=== PATIENT | male | born 1950 | race Caucasian/White ===

== ENCOUNTER 2017-04-19 07:21 | Day surgery (SDC) | payer OTHER ==
[~2017-04-19] VITALS: Ht 165.1 cm; Wt 80.7 kg
[2017-04-19] MEDS ORDERED: GLIM2TAB PO (09:06)
[2017-04-19] MEDS ORDERED: METF500T2 PO (09:06)
[2017-04-19] MEDS ORDERED: INSU100S22 SUBQ (09:06)
[2017-04-19] MEDS ORDERED: LIDOCAINE 2% 100 MG/5 ML UJET TP ONE (09:49)
[2017-04-19] MEDS ORDERED: fentaNYL 0.05 MG/ML VIAL ONE (09:57)
[2017-04-19] MEDS ORDERED: MIDAZOLAM 2 MG/2 ML VIAL ONE (09:57)
[2017-04-19] MEDS ORDERED: MIDAZOLAM 2 MG/2 ML VIAL IVP ONE (12:50)
[2017-04-19] MEDS ORDERED: fentaNYL 0.05 MG/ML VIAL IVP ONE (12:50)
== END 2017-04-19 11:38 | disposition home or self-care (01) ==
LOC: MDS 07:21 → MMU 07:21 → MDS 11:38
PROVIDERS: ATTEND Internal Medicine Gastroenterology
DX: Z09 Encounter for follow-up examination after completed treatment for conditions other than malignant neoplasm (principal); D12.3 Benign neoplasm of transverse colon; K64.8 Other hemorrhoids; K29.70 Gastritis, unspecified, without bleeding; K20.9 Esophagitis, unspecified; K44.9 Diaphragmatic hernia without obstruction or gangrene; K21.9 Gastro-esophageal reflux disease without esophagitis; E66.3 Overweight; E11.9 Type 2 diabetes mellitus without complications; Z98.890 Other specified postprocedural states; Z79.899 Other long term (current) drug therapy; Z79.84 Long term (current) use of oral hypoglycemic drugs; Z68.29 Body mass index [BMI] 29.0-29.9, adult
CPT/HCPCS: 36415; 43239; 45385; 82948; 86677; J2250; J3010